=== PATIENT | male | born 1990 | race Caucasian/White ===

== ENCOUNTER 2020-01-21 02:20 | Outpatient (CLI) | payer BC, SELFPAY ==
[2020-01-21 18:35] LABS: SARS-CoV-2 RNA PCR Negative
== END 2020-01-21 02:21 | disposition home or self-care (01) ==
LOC: ANHCOVIDDT 02:20
PROVIDERS: PCP Family Medicine; Visit Provider Internal Medicine Gastroenterology
DX: Z01.812 Encounter for preprocedural laboratory examination (principal); Z20.828 Contact with and (suspected) exposure to other viral communicable diseases
CPT/HCPCS: 87635; C9803; U0003

== ENCOUNTER 2020-01-24 00:24 | Day surgery (SDC) | payer BC, SELFPAY ==
[2020-01-18 13:45] VITALS: BMI 26.6
[2020-01-24 11:33] VITALS: BP 125/88; PULSE 76; RESP 18; TEMP 36.3; O2SAT 98
[2020-01-24] MEDS: LACTATED RINGERS 1,000 ML 150 ML IV CONT (11:36)
--- NOTE | 2020-01-24 12:44 | WPDANESEPPF ---
Anes - Initial Pre Proc Eval Procedure: Operation Date: 01/24/20 13:00 Proposed Procedures p Colonoscopy - Alvin Ochoa MD Date/Time: 01/24/20 12:44 Surgeon: Alvin Ochoa MD Pre Op Diagnosis: Melena Patient Data Age: 29 Gender: M Height: 5 ft 11 in Weight: 86.7 kg Last Vital Signs Temp 36.3 C L 01/24/20 11:33 Pulse 76 01/24/20 11:33 Resp 18 01/24/20 11:33 BP 125/88 01/24/20 11:33 Pulse Ox 98 01/24/20 11:33 Allergies Allergy/AdvReac Type Severity Reaction Status Date / Time No Known Allergies Allergy Verified 01/24/20 11:32 Home Medications Medication Instructions Recorded Confirmed Type cholecalciferol (vitamin D3) 125 mcg PO DAILY 01/18/20 01/18/20 History [Vitamin D3] Patient hx anesthesia problems: none Family hx anesthesia problems: none [facility] Past Medical History Medical History Blood in stool Diarrhea Overweight (BMI 25.0-29.9) Family History Family History Mother Hypertension Father Cerebrovascular accident Acute myocardial infarction Diabetes mellitus Grandparent Leukemia Social History Social History Smoking status: Never smoker Alcohol intake: never Substance use: never Substance use type: does not use Spiritual care concerns: No Anes - Eval Final PreProcedure Day of Procedure 01/24/20 12:44 Patient weight: overweight Heart: regular rate and rhythm Lungs: clear to auscultation Airway: Mallampati scale class II Neurological: alert and oriented Last oral intake: >/= 8 hours ASA classification: II Emergent: no Anesthetic plan: proceed Anesthesia type and monitoring: general GIVS and standard monitoring Informed Consent: The patient's anesthetic plan and its attendant risks and benefits were discussed with the patient/family/POA. Questions were solicited and answers provided to the satisfaction of the patient/family/POA.
--- NOTE | 2020-01-24 13:21 | PM.HPGS ---
History of Present Illness History of Present Illness Consent: Risks, benefits, and alternatives have been discussed and questions answered. Patient agrees to proceed with procedure. Chief complaint: Melena Narrative: En Gonzalez is a 29 year old male with chronic diarrhea, never had a colonoscopy Review of Systems Constitutional: Constitutional: Denies headache(s) and Denies weakness Eyes: Eyes: Denies blurry vision ENT: Reports Normal hearing present, Denies headache(s) and Denies neck pain Cardiovascular: Cardiovascular: Denies chest pain and Denies dyspnea Respiratory: Respiratory: Denies dyspnea Gastrointestinal: Gastrointestinal: Reports no additional gastrointestinal complaints Genitourinary: Genitourinary: Denies dysuria Musculoskeletal: Musculoskeletal: Denies neck pain Integumentary/Breasts: Skin/Breast: Denies dry skin Neurologic: Reports Normal hearing present, Denies headache(s) and Denies weakness Psychiatric: Psychiatric: Denies anxiety Endocrine: Endocrine: Denies change in body appearance Hematologic/Lymphatic: Hematologic/Lymphatic: Denies easy bleeding Allergic/Immunologic: Allergic/Immunologic: Denies urticaria PMFSH Past Medical History Medical History Blood in stool Diarrhea Overweight (BMI 25.0-29.9) Family History Family History Mother Hypertension Father Cerebrovascular accident Acute myocardial infarction Diabetes mellitus Grandparent Leukemia Social History Social History Smoking status: Never smoker Alcohol intake: never Substance use: never Substance use type: does not use Spiritual care concerns: No Meds Home Medications and Allergies Home Medications Medication Instructions Recorded Confirmed Type cholecalciferol (vitamin D3) 125 mcg PO DAILY 01/18/20 01/18/20 History [Vitamin D3] Allergies Allergy/AdvReac Type Severity Reaction Status Date / Time No Known Allergies Allergy Verified 01/24/20 11:32 Vital Signs Vital Signs - 24 hr 01/24/20 11:33 Temperature 97.3 F L Pulse Rate 76 Respiratory Rate 18 Blood Pressure 125/88 Pulse Oximetry 98 Exam Const: General: comfortable and no acute distress HENMT: General nose exam: Normal nares present Eyes: General: appearance normal, both eyes and all related structures Neck: Neck: no JVD Resp: Auscultation: clear to auscultation bilaterally Cardio: Rate: regular rate Rhythm: regular rhythm GI: Inspection: non-distended GI Palp: Yes Soft to palpation Skin: General skin exam: normal color Neuro: General: gait normal Speech: normal speech Extrem: General: normal to inspection Psych: Mental Status: mental status grossly normal Assessment and Plan Assessment and plan (1) Blood in stool: Code(s): K92.1 - Melena Status: Acute Assessment and Plan: will proceed with colonoscopy (2) Diarrhea: Code(s): R19.7 - Diarrhea, unspecified Status: Acute
[2020-01-24 13:40] VITALS: BP 102/63; PULSE 66; RESP 20; O2SAT 95
[2020-01-24 13:50] VITALS: BP 101/71; PULSE 60; RESP 18; O2SAT 98
[2020-01-24 14:00] VITALS: BP 110/78; PULSE 64; RESP 18; O2SAT 100
== END 2020-01-24 14:20 | disposition home or self-care (01) ==
PROVIDERS: PCP Family Medicine; Visit Provider Internal Medicine Gastroenterology
PROC: 0DJD8ZZ Inspection of Lower Intestinal Tract, Via Natural or Artificial Opening Endoscopic (ICD-10-PCS; CPT 45378; principal; 2020-01-24 13:00)
DX: K92.1 Melena (principal); R19.7 Diarrhea, unspecified
CPT/HCPCS: 45380; 88305; J2704; J7120